=== PATIENT | female | born 2005 | race Caucasian/White ===

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

== ENCOUNTER 2023-02-08 16:09 | Emergency (ER) | payer BC, OTHER, SELFPAY ==
[2023-02-08] VITALS (36 sets, daily range): BP systolic 84–120; BP diastolic 64–93; PULSE 74–104; RESP 16; TEMP 37.4; O2SAT 95–100
--- NOTE | 2023-02-08 16:10 | ED.NURSE ---
pt complained of increasing Left hip and knee pain, pelvis stable, MD notified, verbal order for IV placement for additional CT with contrast. no further orders at this time.
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
[2023-02-08 16:44] LABS: Basophils Percent Auto 0.9 % (0.0-3.0); Eosinophils Percent Auto 1.5 % (0.0-7.0); Hematocrit 40.9 % (33.0-51.0); Hemoglobin* 13.9 gm/dL (12.0-16.0); Immature Granulocytes Pct Auto 0.2 %; Lymphocytes Percent Auto 30.7 % (20-44); Mean Corpuscular HGB Conc 34 gm/dL (32-36); Mean Corpuscular Hemoglobin 31 pg (26-34); Mean Corpuscular Volume 92 fL (80-100); Monocytes Percent Auto 7.4 % (0.0-11.0); Neutrophils Percent Auto 59.3 % (42.0-72.0); Platelet Count* 442 K/uL (140-440); RDW Coefficient of Variation % 12.9 % (11.5-15.5); Red Blood Count 4.43 m/uL (4.00-5.20); White Blood Count* 11.21 K/uL (4.50-11.00)
[2023-02-08 16:47] LABS: Slide Review Reflex No
[2023-02-08 16:56] LABS: Albumin* 4.3 g/dL (3.3-5.0); Chloride* 102 mmol/L (96-114); Sodium* 134 mmol/L (135-149)
[2023-02-08 16:57] LABS: Potassium* 3.5 mmol/L (3.6-5.1)
[2023-02-08 16:58] LABS: HCG Qualitative Serum* Negative (Negative)
[2023-02-08 16:59] LABS: Alanine Aminotransferase* 26 U/L (4-35); Alkaline Phosphatase* 134 U/L (40-150); Anion Gap 13 mEq/L (7-15); Aspartate Amino Transferase* 22 U/L (12-35); Bilirubin Total* 0.6 mg/dL (0.1-1.5); Blood Urea Nitrogen* 15 mg/dL (5-24); Carbon Dioxide* 19 mmol/L (20-32); Creatinine* 0.3 mg/dL (0.6-1.2); Estimated Glomerular Filt Rate 157 ml/min; Glucose* 306 mg/dL (60-115); Total Protein* 7.5 g/dL (6.0-8.3)
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
[2023-02-08 17:38] LABS: Glucose, Point-of-Care* 294 mg/dl (60-115)
--- NOTE | 2023-02-08 17:50 | ED.NURSE ---
insulin given in posterior left upper arm
[2023-02-08 18:02] LABS: Appearance Urine Clear (Clear); Bilirubin Urine Negative (Negative); Blood Urine Negative (Negative); Color Urine Yellow (Yellow); Glucose Urine 2+ (Negative); Ketones Urine 4+ (Negative); Leukocyte Esterase Urine Negative (Negative); Nitrite Urine Negative (Negative); Protein Urine Negative (Negative); Specific Gravity Urine 1.015 (1.000-1.030); Urobilinogen Urine 0.2 (0.2-1.0); pH Urine 5.5 (5.0-8.5)
[2023-02-08 18:11] LABS: Amorphous Sediment Urine Few; RBC Urine 0-2 (0-2); Squamous Epithelial Cell Urine Few (None-Few)
[2023-02-08] MEDS: 0.9 % SODIUM CHLORIDE 1000 ml 1,000 ML IV (18:44)
--- NOTE | 2023-02-08 19:16 | ED.NURSE ---
insulin given in posterior upper left arm, per pt request
== END 2023-02-08 20:40 | disposition home or self-care (01) ==
PROVIDERS: Emergency Provider Family Medicine; PCP Physician Assistant Medical
DX: M25.511 Pain in right shoulder (principal); R73.9 Hyperglycemia, unspecified; V48.5XXA Car driver injured in noncollision transport accident in traffic accident, initial encounter
CPT/HCPCS: 36415; 70450; 71045; 72125; 73000; 73060; 73070; 74177; 80053; 81001; 82947; 82962; 84703; 85025; 87086; 87186; 96360; 96372; 99284; 99285; 99291; J7030; Q9967

== ENCOUNTER 2024-06-13 19:15 | Emergency (ER) | payer OTHER, SELFPAY ==
--- OUTSIDE RECORDS SUMMARY | 2024-06-13 19:18 | XMS_ITS | Continuity of Care Document ---
Author Name [facility] Organization [facility] Care Team Providers Care Call Center Dispatcher Name Role Phone [facility] Unavailable Unavailable Problems Combined list of problems from Department of Defense and Veterans Affairs facilities. It does not include entries that were removed or entered in error. Problem Status Onset Date Problem Type Date of Resolution Comments Source streptococcal sore throat Inactive Condition DoD anomalies of nails Active Condition DoD visit for: well child visit Active Condition DoD immunizations lapsed Active Condition [facility] Outpatient Physician Consultation Active Condition DoD abdominal pain Active Condition DoD allergic rhinitis Active Condition DoD Patient Education Dietary Food Sources For Nutrients Active Condition [facility] Dietary Counseling Pertaining To Specific Condition Active Condition DoD Patient Education - Medication Active Condition DoD Guidance: Concerns About Inadequate Physical Activity Active Condition [facility] Patient Education Dietary Active Condition DoD neck strain Inactive Condition [facility] open wound of face - lip Inactive Condition [facility] visit for: administrative purpose Inactive Condition [facility] nasal passage blockage (stuffiness) Active Condition [facility] cough Active Condition [facility] earache Inactive Condition [facility] diabetes mellitus type 1 - uncontrolled Active Condition [facility] hematuria Active Condition DoD otitis media right ear Active Condition [facility] diabetes mellitus Active Condition [facility] visit for: laboratory Inactive Condition [facility] enuresis primary nocturnal Inactive Condition DoD excessive thirst / fluid intake (polydipsia) Active Condition [facility] New Patient Age 5-11 School / Camp Physical Inactive Condition [facility] otitis externa acute Inactive Condition [facility] pharyngitis streptococcus, group A: beta hemolytic acute Inactive Condition DoD vomiting Inactive Condition DoD viral exanthem Active Condition [facility] pharyngitis acute Active Condition Ra pid strep is negative. DoD Fever Active Condition continue o ral hydration and continue motrin prn. DoD acute tonsillitis Inactive Condition Co ntinue oral hydration.Give soft diet. DoD upper respiratory infection acute Active Condition Mother and father of child both in the room agreed to sympomatic treatment on a PRN basis only. DoD Medications Combined list of outpatient medications from Department of Defense and Veterans Affairs facilities.Medications provided include 1) outpatient medications from the last 15 months, and 2) patient-reported medications. Medication Details Route Status Patient Instructions Prescription Expires Prescription Number Last Dispense Date Ordering Provider Order Date Order Qty Source FREESTLodgeo THAIS 3 SENSOR (flash glucose sensor), KIT, MISCELL, FIELD DIABETES, 1 ea. KIT Active [id number] 2023 6 Pharmac y Data Transac tion Service Facilit y LANTUS SOLOSTAR ([facility] 100/ML (3), INSULN PEN, SUB-Q, SANOFI-AVEN TIS, 3 ml SYRINGE Cancele d [id number] : 2023 0 Pharmac y Data Transac tion Service Facilit y LANTUS SOLOSTAR (INSULIN GLARGINE,[facility].REC.ANLOG ), 100/ML (3), INSULN PEN, SUB-Q, SANOFI-AVEN TIS, 3 ml SYRINGE Active [id number] 2023 30 Pharmac y Data Transac tion Service Facilit y LANTUS SOLOSTAR (INSULIN GLARGINE,[facility].REC.ANLOG ), 100/ML (3), INSULN PEN, SUB-Q, SANOFI-AVEN TIS, 3 ml SYRINGE Active [id number] 4 2023 30 Pharmac y Data Transac tion Service Facilit y METHYLPHENI DATE ER (METHYLPHEN IDATE HCL), 54 MG, TAB ER 24, ORAL, [place], 100 ea. BOTTLE Cancele d [id number] : 2023 0 Pharmac y Data Transac tion Service Facilit y METHYLPHENI DATE ER (METHYLPHEN IDATE HCL), 54 MG, TAB ER 24, ORAL, [place], 100 ea. BOTTLE Active [id number] 2023 30 Pharmac y Data Transac tion Service Facilit y METHYLPHENI DATE ER (METHYLPHEN IDATE HCL), 54 MG, TAB ER 24, ORAL, MALLINCKROD T PH, 100 ea. BOTTLE Cancele d [id number] : 2023 0 Pharmac y Data Transac tion Service Facilit y METHYLPHENI DATE ER (methylphen idate HCl), 54 MG, TAB ER 24, ORAL, [employer], 100 ea. BOTTLE Active [id number] 4 2023 30 Pharmac y Data Transac tion Service Facilit y METHYLPHENI DATE ER (methylphen idate HCl), 54 MG, TAB ER 24, ORAL, [employer], 100 ea. BOTTLE Active [id number] 4 2023 30 Pharmac y Data Transac tion Service Facilit y NOVOLOG (INSULIN ASPART), 100 U/ML, INSULN PEN, SUB-Q, FINESSE NORDISK, 3 ml SYRINGE Active [id number] 2023 30 Pharmac y Data Transac tion Service Facilit y Allergies, Adverse Reactions, Alerts Combined list of allergies from Department of Defense and Veterans Affairs facilities. It does not include entries that were removed or entered in error. Substance Category Reaction Severity Reaction type Status Date Reported Comments Source No Known Allergies Drug allergy (disorder) active 12/07/2007 22 Med G p Jahaira GALVAN ([facility] [place] Immunizations Combined list of available immunizations from the Department of Defense and Veterans Affairs facilities. Immunization Series Date Given Administered By Site Reaction Lot Number CVX Code Drug Slab Stripper Status Comments Source pneumococcal polysaccharid e vaccine, 23 valent 1 2012 Unknown, Provider [id number] Merck (MSD) complet ed pneumococ andres polysacch aride vaccine, 23 valent DoD Influenza, seasonal, injectable 3 2010 Unknown, Provider [id number] Sanofi Pasteur (PMC) complet ed Influenza , seasonal, injectabl e DoD hepatitis A vaccine, pediatric dosage, unspecified formulation 2 2010 Unknown, Provider [id number] PhoenixKline (SKB) complet ed hepatitis A vaccine, pediatric dosage, unspecifi ed formulati on DoD measles, mumps and rubella virus vaccine 2 2008 Unknown, Provider [id number] Merck (MSD) complet ed measles, mumps and rubella virus vaccine DoD varicella virus vaccine 2 2008 Unknown, Provider [id number] 21 Merck (MSD) complet ed varicella virus vaccine DoD hepatitis A vaccine, pediatric dosage, unspecified formulation 1 2008 Unknown, Provider [id number] 31 SmithKline (SKB) complet ed hepatitis A vaccine, pediatric dosage, unspecifi ed formulati on DoD Diphtheria, tetanus toxoids and acellular pertu is vaccine, and poliovirus vaccine, inactivated 5 2008 Unknown, Provider [id number] 130 [place] [employer] ([facility]) complet ed Diphtheri a, tetanus toxoids and acellular pertussis vaccine, and polioviru s vaccine, inactivat ed DoD influenza virus vaccine, split virus (incl. purified surface antigen)-reti red CODE 1 2004 Unknown, Provider [id number] 15 Sanofi Pasteur ([facility]) complet ed influenza virus vaccine, split virus (incl. purified surface antigen)- retired CODE DoD diphtheria, tetanus toxoids and acellular pertu is vaccine 4 2004 Unknown, Provider [id number] 20 [place] [employer] ([facility]) complet ed diphtheri a, tetanus toxoids and acellular pertussis vaccine DoD pneumococcal conjugate vaccine, 7 valent 4 2004 Unknown, Provider [id number] 100 Wy[employer] ([facility]) complet ed pneumococ andres conjugate vaccine, 7 valent DoD measles, mumps and rubella virus vaccine 1 2004 Unknown, Provider [id number] 03 Merck (MSD) complet ed measles, mumps and rubella virus vaccine DoD varicella virus vaccine 1 2004 Unknown, Provider [id number] 21 Merck (MSD) complet ed varicella virus vaccine DoD Haemophilus influenzae type b vaccine, PRP-OMP conjugate 3 2004 Unknown, Provider [id number] 49 Merck (MSD) complet ed Haemophil us influenza e type b vaccine, PRP-OMP conjugate DoD influenza virus vaccine, split virus (incl. purified surface antigen)-reti red CODE 1 2003 Unknown, Provider [id number] 15 Sanofi Pasteur ([facility]) complet ed influenza virus vaccine, split virus (incl. purified surface antigen)- retired CODE DoD pneumococcal conjugate vaccine, 7 valent 3 2003 Unknown, Provider [id number] 100 [employer]-Ayerst ([facility]) complet ed pneumococ andres conjugate vaccine, 7 valent DoD DTaP-hepatiti s B and poliovirus vaccine 3 2003 Unknown, Provider [id number] 110 [employer] (B) complet ed DTaP-hepa titis B and polioviru s vaccine DoD Haemophilus influenzae type b vaccine, PRP-OMP conjugate 2 2003 Unknown, Provider [id number] 49 Merck (MSD) complet ed Haemophil us influenza e type b vaccine, PRP-OMP conjugate DoD pneumococcal conjugate vaccine, 7 valent 2 2003 Unknown, Provider [id number] 100 Wyvandana-Zan ([facility]) complet ed pneumococ andres conjugate vaccine, 7 valent DoD DTaP-hepatiti s B and poliovirus vaccine 2 2003 Unknown, Provider [id number] 110 SmithKline (SKB) complet ed DTaP-hepa titis B and polioviru s vaccine DoD Haemophilus influenzae type b vaccine, PRP-OMP conjugate 1 2003 Unknown, Provider [id number] 49 Merck (MSD) complet ed Haemophil us influenza e type b vaccine, PRP-OMP conjugate DoD pneumococcal conjugate vaccine, 7 valent 1 2003 Unknown, Provider [id number] 100 Wy[employer]Ayer[employer] ([facility]AL) complet ed pneumococ andres conjugate vaccine, 7 valent DoD DTaP-hepatiti s B and poliovirus vaccine 1 2003 Unknown, Provider [id number] 110 [employer] [facility] complet ed DTaP-hepa titis B and polioviru s vaccine DoD hepatitis B vaccine, pediatric or pediatric/ado lescent dosage 1 2003 Unknown, Provider Transcr ibed 08 Other (OTH) complet ed hepatitis B vaccine, pediatric or pediatric /adolesce nt dosage DoD Encounters Combined list of: 1) Encounters from Department of Veterans Affairs facilities going backup to the last 18 months, not all VA inpatient encounters are included; 2) Encounters from the Department of Defense facilities going backup to 280 months. Location Location Details Encounter Type Encounter Number Reason For Visit Attending Provider ADM Date DC Date Status Disposition Source [employer](F amily Practice Team 2) OUTPATIENT [id number] Red throat and fever DEANA TALLEY 09/16 Released w/o Limitations [employer] (Family Practic e Team 2) [employer](P ediatrics Clinic) OUTPATIENT [id number] FEVER AND CONGEST ESTELA LING S 09/19 Released w/o Limitations [employer] (Pediat rics Clinic) [employer] [employer]P ediatrics Clinic) OUTPATIENT [id number] sore throat ESTELA GUZMÁN S 04/06 Released w/o Limitations [employer] [employer] [place]Pediat [place]ics Clinic) [employer] [employer]F amily Practice Team 1) TELE CONSULT [id number] referDEANA Vasquez 12/06 [employer] [employer] (Family Practic e Team 1) [employer] [employer] am[place] Practice Team 2) OUTPATIENT [id number] THROAT CULTURE LAURA NAVA 07/21 Released w/o Limitations [employer] [employer] (Family Practic e Team 2) [employer] [employer] am[place] Practice Team 2) OUTPATIENT [id number] Earache , cough JODY STEPHENUGO 09/15 Released w/o Limitations [employer] [employer] (Family Practic e Team 2) [employer] [employer]F am[place] Practice Team 2) OUTPATIENT [id number] LAURA NAZARIO 11/22 Released w/o Limitations [employer] [employer] (Family Practic e Team 2) [employer] [employer]F amily Practice Team 2) TELE CONSULT [id number] rajesh BIANCHIAXIN 11/22 [employer] [employer] (Family Practic e Team 2) [employer] [employer]F amily Practice Team 2) TELE CONSULT [id number] LAURA Choe 11/27 [employer] [employer] (Family Practic e Team 2) [employer] [employer]F amily Practice Team 2) OUTPATIENT [id number] LAURA NAVA 04/02 Released w/o Limitations [employer] [employer] (Family Practic e Team 2) [employer] [employer]F amily Practice Team 2) OUTPATIENT [id number] vomitin g and fever, pt is diabeti c LIBBY FIELD 06/05 Released w/o Limitations [employer] [employer] (Family Practic e Team 2) [employer] [employer]F amily Practice Team 2) TELE CONSULT [id number] Overdue DM Labs LUBNA BENSON 06/27 [employer] [employer] (Family Practic e Team 2) [employer] [employer]F amily Practice Team 2) TELE CONSULT [id number] fyi LIBBY FIELD 10/[employer] [employer] [employer] (Family Practic e Team 2) [employer] [employer]F am[place] Practice Team 2) OUTPATIENT [id number] DM f/u ER visit LIBBY FIELD 10/10 Released w/o Limitations [employer] [employer] (Family Practic e Team 2) [employer] [employer]F amily Practice Team 2) TELE CONSULT [id number] Report lab LIBBY FIELD 10/17 [employer] [employer] (Family Practic e Team 2) [employer] [employer]F amily Practice Team 1) TELE CONSULT [id number] LUBNA Fajardo 01/30 [employer] [employer] (Family Practic e Team 1) [employer] [employer]F amily Practice Team 1) TELE CONSULT [id number] Referra LIBBY Caro 11/22 /2010 [employer] [employer] (Family Practic e Team 1) [employer] [employer]F amily Practice Team 2) TELE CONSULT [id number] pt needs new referra l for Endocro nologis t DORI GOLD 04/[employer] [employer] (Family Practic e Team 2) [employer] [employer]F amily Practice Team 2) OUTPATIENT [id number] Cough and Congest ion BENSON, LUBNA K 05/20 Released w/o Limitations [employer] [employer] (Family Practic e Team 2) [employer] [employer]F amily Practice Team 1) TELE CONSULT [id number] Network results - Endocri nology - 0411 DORI GOLD 08/[employer] [employer] (Family Practic e Team 1) [employer] [employer]F amily Practice Team 2) OUTPATIENT [id number] referra l for endocro nolgist LIBBY FIELD 11/27 Released w/o Limitations [employer] [employer] (Family Practic e Team 2) [employer] [employer](Sergei Barber Ped Team A) OUTPATIENT [id number] neck pain SORAYA LOW 02/20 Released w/o Limitations [employer] [employer] (Jan bills Ped Team A) [employer] [employer](Jodie ietician (In-House )) OUTPATIENT [id number] Diabete s Class JACKIE MCLAUGHLIN 05/13 Released w/o Limitations [employer] [employer] (Danisha amnzano (In-Rohith)) [employer] [employer](M [facility] Team Z) OUTPATIENT [id number] DM Group class TANIKA EVERETT RN 05/13 Released w/o Limitations [employer] [employer] ([facility] Team Z) [employer] [employer]([facility] Team Z) TELE CONSULT [id number] DM b-day labs TANIKA EVERETT RN 06/13 [employer] [employer] ([facility] Team Z) [employer] [employer](M [facility] Ped Team A) OUTPATIENT [id number] cough and vomitin g SORAYA LOW 08/03 Released w/o Limitations [employer] [employer] ([facility] Ped Team A) [employer] [employer]([facility] Ped Team A) OUTPATIENT [id number] stomach pains SORAYA LOW 10/12 Released w/o Limitations [employer] [employer] ([facility] Ped Team A) [employer] [employer]([facility] Ped Team A) OUTPATIENT [id number] cough SORAYA LOW 12/25 Released w/o Limitations [employer] [employer] ([facility] Ped Team A) [employer] [employer]([facility] Ped Team A) TELE CONSULT [id number] Notes Entered by: LAUREL ESTRADA 19 May 2012 1450 ------- ------- ------- ------- -- Network Results - Endo. - 04/2012 SORAYA LOW 05/19 [employer] [employer] ([facility] Ped Team A) [employer] [employer]([facility] Ped Team A) TELE CONSULT [id number] Notes Entered by: LAUREL ESTRADA 24 Jun 2012 1331 ------- ------- ------- ------- -- Network Results - Endo. - 06/2012 SORAYA LOW 06/24 [employer] [employer] ([facility] Ped Team A) [employer] [address] [facility] [employer]([facility] Team A) TELE CONSULT [id number] Notes Entered by: LAUREL ESTRADA 24 Jun 2012 1332 ------- ------- ------- ------- -- Network Results - Endo. - 06/2012 SORAYA LOW 06/24 [employer] [employer] ([facility] Team A) [employer] [place] [facility] [place] [employer]([facility] Team A) TELE CONSULT [id number] Notes Entered by: LAUREL ESTRADA 09 Jul 2012 1506 ------- ------- ------- ------- -- Network Results - Endo. - 06/2012 SORAYA LOW 07/09 [employer] [employer] ([facility] Team A) [employer] [place] [facility] [employer]([facility] Team A) TELE CONSULT [id number] Notes Entered by: LAUREL ESTRADA 14 Jul 2012 1545 ------- ------- ------- ------- -- Network Results - Endo. - 06/2012 SORAYA LOW 07/14 [employer] [place] [employer] ([facility] Team A) [facility] [employer]([facility] Team Z) TELE CONSULT [id number] Notes Entered by: TANIKA EVERETT RN 16 Jul 2012 1021 ------- ------- ------- ------- -- Lab from [place] base TANIKA Mendez RN 07/16 [employer] [employer] ([facility] Team Z) [employer] [place] [employer]([facility] Team A) TELE CONSULT [id number] Notes Entered by: LAUREL ESTRADA 06 Aug 2012 0739 ------- ------- ------- ------- -- Network Results - Endo. - 07/2012 SORAYA LOW 08/[employer] [employer] ([facility] Team A) [employer] [place] [employer]([facility] Ped Team A) TELE CONSULT [id number] Notes Entered by: LAUREL ESTRADA 06 Aug 2012 0740 ------- ------- ------- ------- -- Network Results - Endo - 07/2012 SORAYA LOW 08/06 [employer] [place] ([facility] Team A) [employer] [place] [employer]([facility] Team Z) TELE CONSULT [id number] Notes Entered by: TANIKA EVERETT RN 06 Aug 2012 1138 ------- ------- ------- ------- -- Labs from [place] base TANIKA Mendez RN 08/06[employer], [place] [employer] ([facility] Team Z) [employer] [employer]([facility] Team A) TELE CONSULT [id number] Notes Entered by: ANNA LINDSEY RN 08 Sep 2012 1020 ------- ------- ------- ------- -- Immuniz ation JENN Anaya RN 09/[employer] [employer] [employer] ([facility] Ped Team A) [employer] [employer](M [facility] Ped Team A) OUTPATIENT [id number] well check SORAYA LOW 09/27 Released w/o Limitations [employer] [employer] ([facility] Ped Team A) [employer] [employer](M [facility] Ped Team A) OUTPATIENT [id number] cough SORAYA LOW 10/07 Released w/o Limitations [employer] [employer] ([facility] Ped Team A) [employer] [employer](M [facility] Ped Team A) TELE CONSULT [id number] Notes Entered by: LAUREL ESTRADA 30 Dec 2012 1335 ------- ------- ------- ------- -- Network Results - Endocri nology - 12/2012 SORAYA LOW 12/30 [employer] [employer] ([facility] Ped Team A) [employer] [place] [employer] Ped Team A) OUTPATIENT [id number] diabeti c, toenail turning yellow and peeling SORAYA LOW 02/21 Released w/o Limitations [employer] [employer] ([facility] Ped Team A) [employer] [place] [employer]([facility] Ped Team A) TELE CONSULT [id number] Notes Entered by: LAUREL ESTRADA 15 Mar 2013 1323 ------- ------- ------- ------- -- Network Results - Podiatr y - 02/2013 SORAYA LOW 03/[employer] [employer] ([facility] Team A) [employer] [employer]([facility] Team Z) TELE CONSULT [id number] Notes Entered by: TANIKA EVERETT RN 16 Mar 2013 1217 ------- ------- ------- ------- -- Endo lab results SORAYA LOW 03/16 [employer] [employer] ([facility] Team Z) [employer] [employer]([facility] Team Z) TELE CONSULT [id number] Notes Entered by: DANE DOUGLAS 31 Mar 2013 0953 ------- ------- ------- ------- -- Network results - Endocri nology - 3 SORAYA LOW 03/31 [employer] [employer] ([facility] Team Z) [employer] [place] [employer] Team A) TELE CONSULT [id number] Notes Entered by: LAUREL ESTRADA 12 Apr 2013 1348 ------- ------- ------- ------- -- Network Results - Podiatr y - 03/2013 SORAYA LOW 04/12 [employer] [employer] ([facility] Team A) [employer] [place] [employer] Team A) OUTPATIENT [id number] headach e, stomach pain, sore throat SORAYA LOW 06/02 Released w/o Limitations [employer] [employer] ([facility] Team A) [employer] [employer]([facility] Team D) TELE CONSULT [id number] Notes Entered by: LAUREL ESTRADA 13 Jun 2013 1029 ------- ------- ------- ------- -- Network Results - Podiatr y - 05/2013 SORAYA LOW 06/13 [employer] [employer] ([facility] Team D) [facility] [employer] [employer] [employer]([facility] Team A) TELE CONSULT [id number] Notes Entered by: LAUREL ESTRADA 06 Jul 2013 0746 ------- ------- ------- ------- -- Network Results - Endocri nology - 06/2013 . [facility] SORAYA LOW 07/06 [employer] [employer] ([facility] Team A) [facility] [place] [employer]([facility] Team A) TELE CONSULT [id number] Notes Entered by: Thelma LOZA 02 Aug 2013 1005 ------- ------- ------- ------- -- Please renew Endo ref to Dr. Mick Maravilla . [facility] [phone]..JENN Funes RN 08/02 [facility] [place] [employer] ([facility] Team A) nd [employer] [employer]([facility] Team A) TELE CONSULT [id number] Notes Entered by: Abhishek SALEH 17 Oct 2013 1112 ------- ------- ------- ------- -- Patient is moving this weekend and she needs insulin pump JENN Galloway RN 10/17nd [facility] [employer] [place] [employer] ([facility] Team A) nd [facility] [place] [place] [employer]([facility] Team A) TELE CONSULT [id number] Notes Entered by: IVAN DOUGLASARE WALTER 28 Oct 2013 1251 ------- ------- ------- ------- -- Network results - Endocri nology - SORAYA LOW 10/28 22 [employer] [employer] ([facility] Team A) Procedures Combined list of: 1) Procedures from Department of Veterans Affairs facilities going back up to thelast 18 months, not all [place] non-surgical procedures are included; 2) All procedures from the Department of Defense facilities. Procedure Procedure Type Code Date Perfomer Comments [facility] ramu Disease management program, follow-up/barrington e ment 03/16/2013 IVETT EVERETT RN [facility] Toenail Culture Fungi Toenail Culture Fungi [id number] 02/26/2013 SORAYA LOW [facility] Medical Nutrition Therapy Group (2 or More Individuals) Each 30 Minutes Medical Nutrition Therapy Group (2 or More Individuals) Each 30 Minutes [id number] 05/13/2011 JACKIE MCLAUGHLIN [facility] Disease management program, follow-up/barrington e ment 05/13/2011 IVETT EVERETT RN [facility] DISEASE MANAGEMENT PROGRAM, FOLLOW-UP/REASSESSMEN T 03/16/2013 [facility] CULTURE, FUNGI (MOLD OR YEAST) ISOLATION, WITH PRESUMPTIVE IDENTIFICATION OF ISOLATES; SKIN, HAIR, OR NAIL 02/21/2013 [facility] DISEASE MANAGEMENT PROGRAM, FOLLOW-UP/REASSESSMEN T 05/13/2011 [facility] MEDICAL NUTRITION THERAPY; GROUP (2 OR MORE INDIVIDUAL(S)), EACH 30 MINUTES 05/13/2011 [facility] NONINVASIVE EAR OR PULSE OXIMETRY FOR OXYGEN SATURATION; SINGLE DETERMINATION 03/05/2005 [facility] NONINVASIVE EAR OR PULSE OXIMETRY FOR OXYGEN SATURATION; SINGLE DETERMINATION 08/15/2004 [facility] VARICELLA VIRUS VACCINE (SHERRY), LIVE, FOR SUBCUTANEOUS USE 07/25/2004 [facility] REMOVAL IMPACTED CERUMEN REQUIRING INSTRUMENTATION, UNILATERAL 05/02/2004 [facility] HAEMOPHILUS INFLUENZAE TYPE B VACCINE (HIB), PRP-OMP CONJUGATE, 3 DOSE SCHEDULE, FOR INTRAMUSCULAR USE 2003 [facility] Social History Combined list of available smoking, tobacco, and other social history from Department of Defense and Veterans Affairs facilities. Social History Type Response Date Comment [facility] ramu This section is an empty social history section. [facility]
--- OUTSIDE RECORDS SUMMARY | 2024-06-13 19:18 | XMS_ITS | Clinical Summary ---
Demographics Address [address] [place] [address] Home Phone Mobile Phone Email Address Preferred Language Gabonese Marital Status Unknown Christian Affiliation Does not wish to l ist Race White Ethnic Group Not or Lati no Author Organization [employer] [facility] Address [address] [place] [address] Care Team Providers Care Hair Assistant Name Role Phone Aracelis Saab Primary Care Provider Jo Kearns RN Unavailable Luis Mendiola DO Unavailable [phone] Alannah Boss Unavailable Allergies Active Allergy Reactions Criticality Noted Date Comments Cinnamon Oil Rash Medium 12/28/2013 Cefadroxil Nausea Only,Stomach Upset 01/21/2021 Medications hydrOXYzine HCL (ATARAX) 25 mg tabletIndications :Anxiety Take 0.5-1 tablets by mouth 3 times daily if needed for Anxiety. 25 tablet 05/15/19 21 Active methylphenidate HCl (Concerta) 54 mg Extended-Release tabletIndications :Attention deficit hyperactivity disorder (ADHD), combined type Take 1 Tablet (54 mg) by mouth once daily. 30 Tablet 07/09/19 23 Active methylphenidate HCl (Concerta) 54 mg Extended-Release tabletIndications :Attention deficit hyperactivity disorder (ADHD), combined type Take 1 Tablet (54 mg) by mouth once daily. 30 Tablet 09/08/19 23 Active methylphenidate (Concerta) 54 mg extended-release tabletIndications :Attention deficit hyperactivity disorder (ADHD), combined type Take 1 Tablet (54 mg) by mouth once daily. 30 Tablet 09/19/19 24 Active Blood-Glucose Meter (Contour Next Meter)Indications :Type 1 diabetes mellitus without complication (HC) Test 4 times per day. 11/09/19 24 Active Dexcom G7 Sensor for continuous blood glucose monitor (CGM)Indications: Type 1 diabetes mellitus without complication (HC) To be used to read blood sugars, follow label cutter directions. Change every 10 days 9 Each 3 11/09/19 24 Active methylphenidate (Concerta) 54 mg extended-release tabletIndications :Attention deficit hyperactivity disorder (ADHD), combined type Take 1 Tablet (54 mg) by mouth once daily. 30 Tablet 01/15/20 24 Active methylphenidate (Concerta) 36 mg extended-release tabletIndications :Attention deficit hyperactivity disorder (ADHD), combined type Take 1 Tablet (36 mg) by mouth once daily. 30 Tablet 11/24/19 24 Active pen needle (Cynthia Pen Needle) 32 gauge x 5/32 (disposable insulin pen needle)Indication s:Type 1 diabetes mellitus without complication (HC) Inject subcutaneous 5 times daily. To use with insulin up to 5 times daily 150 Each 3 12/15/19 24 Active insulin aspart, U-100, (NOVOLOG FLEXPEN) 100 unit/mL (3 mL) penIndications:Ty pe 1 diabetes mellitus without complication (HC) 1 unit per 15 grams of carbohydrate plus correction scale of 1:50 over 150. Up to 30 units daily 30 mL 3 12/15/19 24 Active bolus insulin pump, 200 unit (CeQur Simplicity) 2 unit deviIndications:T ype 1 diabetes mellitus without complication (HC) As directed. Patient to change patch every 3 days 1 Each 3 01/14/20 24 Active Lantus Solostar U-100 Insulin 100 unit/mL (3 mL) penIndications:Ty pe 1 diabetes mellitus without complication (HC) Inject 30 units subcutaneous before bedtime. Product desired: LANTUS SOLOSTAR 30 mL 3 02/02/20 24 Active glucagon (Baqsimi) 3 mg/actuation nasal sprayIndications: patient with diabetes mellitus at risk of hypoglycemia Inhale 1 [place] into affected nostril(s) each time if needed for Severe Hypoglycemia. Roll on side and call 911 after administration. 2 Each 03/31/20 24 Active Active Problems Problem Noted Date Diagnosed Date Type 1 diabetes mellitus without complication Resolved Problems Problem Noted Date Diagnosed Date Resolved Date Type 1 diabetes mellitus with hyperglycemia 03/01/2021 08/04/2023 Encounters Date Type Department Care Team Description 04/30/2024 Telephone [facility] [address] [facility] [address] [place] [address] Alannah Boss PA Prior Authorization (Dexcom G7 Sensor for continuous blood glucose monitor (CGM) Approved 04/30/2024 to 04/29/2025) 04/26/2024 Orders Only [facility] [address] [facility] [address] [place] [address] Alannah Boss PA <No scans attached> 03/31/2024 1:00 PM [facility]OTH [facility]ER Patient Outreach [facility] [address] [place] [address] Jo Kearns agent contract clerk (Pre-pump assessment) 03/31/2024 Travel from Last 3 Months Immunizations Name Administration Dates Next Due DTP 11/22/2008, 5,02/07/2004,11/21,2003 DTaP 12/02/2004 [id number] (Pediarix) 02/07/2004,2003,0 2003 DTaP-IPV (Kinrix) 11/22/2008 HIB PRP-OMP (PedvaxHIB) 07/25/2004,2003, HPV 9 (Gardasil 9) 02/04/2016,12/17/2015 Hepatitis A (Peds),Unspecified 11/27/2010,2008,2003 Hepatitis A, Unspecified 11/22/2008,2003 Hepatitis B (Peds) 2003 Hepatitis B, Unspecified 2003,2003,0 2003 Influenza Virus, Unspecified 02/04/2016, 03/28/2015,05/10/2014,02/09(Deferred: Patient Refused),01/30/2011,03/28/2005, 004 Influenza, IIV4 02/21/2020, 9,02/04/2016,03/28,05/10/2014 MENINGOCOCCAL VACCINE 2 VIAL [id number] (MENVEO) 12/07/2020,12/17/2015 MMR 11/22/2008,07/25/2004 Oral Polio Vaccine 11/22/2008, 4,2003,09/18 Pneumococcal Poly,23-Valent (Pneumovax) 09/27/2012 Pneumococcal conj 7-Valent (Prevnar 7) 0 12/02/2004,02/07/2004,2003,09/18 Polio Virus, Unspecified 11/22/2008,01/19,2003,09/18 Tdap 12/17/2015 Varicella Vaccine 11/22/2008,07/25/2004 Family History Medical History Relation Name Comments Other Brother substance abuse Good Health Father Good Health Mother Good Health Sister Relation Name Status Comments Brother Father Mother Sister Social History Tobacco Use Types Packs/Day Years Used Date Smoking Tobacco: Never Smokeless Tobacco: Never Tobacco Cessation:Counseling Given: Yes Comments:no exposure Alcohol Use Standard Drinks/Week Comments Yes 0 (1 standard drink = 0.6 oz pur e alcohol) PHQ-2 Answer Date Recorded PHQ-2 TOTAL SCORE 1 05/15/2020 Social Connections Answer Date Recorded Do you often feel lonely or isolated from those around you? 0 01/19/2024 Alcohol Use Answer Date Recorded How often do you have a drink containing alcohol ? 3 01/08/2022 How many drinks containing a lcohol do you have on a typical day when you are drinking? 2 01/08/2022 How often do you have five or more drinks on one occasion? 3 01/08/2022 Financial Resource Strain Answer Date R ecorded Difficulty of Paying Living Expenses 3 01/19/2024 Difficulty of Paying Living Expenses Not on file 01/19/2024 Food Insecurity Answer Date Recorded Do you worry your food will run out before you are able to buy more? 1 01/19/2024 Transportation Needs Answer Date Record ed Does lack of transportation keep you from medica l appointments? 1 01/19/2024 Does lack of transportation keep you from work, meetings or getting things that you need? 1 01/19/2024 Housing Stability Answer Date Recorded What is your housing situation today? 1 01/19/2024 Utilities Answer Date Recorded Do you have trouble paying f or utilities (for example, heat, electricity, water, phone)? 1 01/19/2024 Comments No Sex and Gender Information Value Date Recorded Sex Assigned at Not on file Legal Sex Female 1:44 PM CDT Gender Identity Not on file Sexual Orientation Not on file Obstetrics History Last Filed Vital Signs Vital Sign Reading Time Taken Comments Blood Pressure 112/68 02/01/2024 11:27 AM CDT Pulse 68 02/01/2024 11:27 AM CDT Temperature 36.7 C (98.1 F) 02/10/2023 3:03 PM CDT Respiratory Rate 20 05/20/2017 1:46 PM CLOTH SHRINKER Oxygen Saturation 97% 01/19/2024 2:44 PM CDT Inhaled Oxygen Concentration - - Weight 48.5 kg (107 lb) 02/01/2024 11:27 AM CDT Height 157 cm (5' 1.81) 12/09/2023 4:13 PM CDT Body Mass Index - - Plan of Treatment Upcoming Encounters Date Type Department Care Team (Late st Contact Info) Description 08/02/2024 9:40 AM CDT Office Visit [facility] [address] [place], [place] [id number] Luis Mendiola, DO [address] [place] [address] Health Maintenance Due Date Last Done Comments Pneumococcal series for age 6-49 (2 of 2 - PCV) 09/27/2013 09/27/2012, 12/02/2004, 02/07/2004, Additional history exists HPV series for age 9-26 (3 - 2-dose series) 06/17/2016 02/04/2016, 12/17/2015 Well Child Check for age 3-20 12/16/2016 12/17/2015 HIV for age 15-65 07/18/2018 Depression screening for age 12+ 05/15/2021 05/15/2020, 04/06/2019, 05/29/2017, Additional history exists Hepatitis C screening for ag e 18-79 07/18/2021 Chlamydia for age 16-24 11/26/2022 11/26/2021 COVID-19 vaccine series ( season) 2023 08/07/2020, 07/17/2020 Influenza for age 9-49 12/20/2023 , 01/25/2019, 02/04/2016, Additional history exists BMI (ht and wt on same day) for age 18+ 12/08/2024 12/09/2023, 11/09/2023, 12/27/2021, Additional history exists Tetanus booster 12/16/2025 12/17/2015 Hepatitis B series for Diabetes Completed 02/07/2004, 2003, 2003, Additional history exists Tdap Completed 12/17/2015 Meningococcal series for age 11-21 Completed 2020, 12/17/2015 Procedures Procedure Name Priority Date/Time Associated Diagnosis Comments GC CHLAMYDIA TRACH PROBE Routine 11/26/2021 1:09 PM CDT Screen for STD (sexually transmitted disease) Vaginal discharge from Last 3 Months or Most Recently Relevant to Health Maintenance Results * (ABNORMAL) GC CHLAMYDIA TRACH PROBE (11/26/2021 1:09 PM CDT) CHLAMYDIA PROBE Positive(A) 11/28/19 2:12 PM CDT [facility] N GONORRHOEAE PROBE Negative 11/27/2021 2:12 PM CDT [facility] Other VAGINAL SWAB / Unknown Non-Blood / Unknown 11/26/2021 1:09 PM CDT 11/26/2021 1:43 PM CDT us Aracelis PINEDA MICROBIOLOGY Final R esult [facility] [address] [place] [address], [place] from Last 3 Months or Most Recently Relevant to Health Maintenance Insurance [facility] * Guarantor: Antoni Pacheco Account Type Relation to Patient Date of Phone Billing Address Workers Comp Self 2005 04[address] [place] [address] [employer] NON-XCEL EMP Care Teams Hair Assistant Relationship Specialty Start Date End Date Aracelis Saab PA [address] [place] [address] PCP - General Physician Japanese Interpreter 07/11/20 Jo Kearns, RN [address] [place] [address] Body Maker 12/16/22 Luis Mendiola DO [address] [place] [address] Endocrinology 05/01/23 Alannah Boss PA [address] [place] [address] Endocrinology Physician Japanese Interpreter 11/09/23
[2024-06-13 19:32] VITALS: BP 131/92; PULSE 106; RESP 20; TEMP 37.8; O2SAT 96; BMI 18.7
[2024-06-13 20:36] LABS: PCR FLU A Negative PCR FLU A (Negative); PCR FLU B Negative PCR FLU B (Negative); PCR RSV POSITIVE PCR RSV (Negative); SARS PCR* Negative SARS-CoV-2 (Negative)
[2024-06-13 21:06] VITALS: BP 124/84; PULSE 109; RESP 16; TEMP 37.7; O2SAT 95
--- OUTSIDE RECORDS SUMMARY | 2024-06-13 21:20 | XMS_ITS | Continuity of Care Document ---
Author Name [facility] Organization [facility] Care Team Providers Care Convertible Sofa Bedspring Tester Name Role Phone [facility] Unavailable Unavailable Problems Combined list of problems from Department of Defense and Veterans Affairs facilities. It does not include entries that were removed or entered in error. Problem Status Onset Date Problem Type Date of Resolution Comments Source streptococcal sore throat Inactive Condition DoD anomalies of nails Active Condition DoD visit for: well child visit Active Condition DoD immunizations lapsed Active Condition [facility] Outpatient Physician Consultation Active Condition DoD abdominal pain Active Condition DoD allergic rhinitis Active Condition DoD Patient Education Dietary Food Sources For Nutrients Active Condition [facility] Dietary Counseling Pertaining To Specific Condition Active Condition DoD Patient Education - Medication Active Condition DoD Guidance: Concerns About Inadequate Physical Activity Active Condition [facility] Patient Education Dietary Active Condition DoD neck strain Inactive Condition [facility] open wound of face - lip Inactive Condition [facility] visit for: administrative purpose Inactive Condition [facility] nasal passage blockage (stuffiness) Active Condition [facility] cough Active Condition [facility] earache Inactive Condition [facility] diabetes mellitus type 1 - uncontrolled Active Condition [facility] hematuria Active Condition DoD otitis media right ear Active Condition [facility] diabetes mellitus Active Condition [facility] visit for: laboratory Inactive Condition [facility] enuresis primary nocturnal Inactive Condition DoD excessive thirst / fluid intake (polydipsia) Active Condition [facility] New Patient Age 5-11 School / Camp Physical Inactive Condition [facility] otitis externa acute Inactive Condition [facility] pharyngitis streptococcus, group A: beta hemolytic acute Inactive Condition DoD vomiting Inactive Condition DoD viral exanthem Active Condition [facility] pharyngitis acute Active Condition Ra pid strep [...] Ordering Provider Order Date Order Qty Source FREESTTravelZeeky THAIS 3 SENSOR (flash glucose sensor), KIT, MISCELL, FIELD DIABETES, 1 ea. KIT Active [id number] 2023 6 Pharmac y Data Transac tion Service Facilit y LANTUS SOLOSTAR (INSULIN GLARGINE,[facility] ), 100/ML (3), INSULN PEN, SUB-Q, SANOFI-AVEN TIS, 3 ml SYRINGE Cancele d [id number] : 2023 0 Pharmac y Data Transac tion Service Facilit y LANTUS SOLOSTAR (INSULIN GLARGINE,[facility].REC.ANLOG ), 100/ML (3), INSULN PEN, SUB-Q, SANOFI-AVEN TIS, 3 ml SYRINGE Active [id number] 2023 30 Pharmac y Data Transac tion Service Facilit y LANTUS SOLOSTAR (INSULIN GLARGINE,[facility].REC.ANLOG ), 100/ML (3), INSULN PEN, SUB-Q, SANOFI-AVEN TIS, 3 ml SYRINGE Active [id number] 2023 30 Pharmac y Data Transac tion Service Facilit y METHYLPHENI DATE ER (METHYLPHEN IDATE HCL), 54 MG, TAB ER 24, ORAL, [place] URB[place], 100 ea. BOTTLE Cancele d [id number] : 2023 0 Pharmac y Data Transac tion Service Facilit y METHYLPHENI DATE ER (METHYLPHEN IDATE HCL), 54 MG, TAB ER 24, ORAL, [place], 100 ea. BOTTLE Active [id number] 2023 30 Pharmac y Data Transac tion Service Facilit y METHYLPHENI DATE ER (METHYLPHEN IDATE HCL), 54 MG, TAB ER 24, ORAL, MALLINCKROD T PH, 100 ea. BOTTLE Cancele d [id number] : 2023 0 Pharmac y Data Transac tion Service Facilit y METHYLPHENI DATE ER (methylphen idate HCl), 54 MG, TAB ER 24, ORAL, TRIGEN [employer]ORATO, 100 ea. BOTTLE Active [id number] 2023 30 Pharmac y Data Transac tion Service Facilit y METHYLPHENI DATE ER (methylphen idate HCl), 54 MG, TAB ER 24, ORAL, TRIGEN [employer]ORATO, 100 ea. BOTTLE Active [id number] 2023 30 Pharmac y Data Transac tion Service Facilit y NOVOLOG (INSULIN ASPART), 100 U/ML, INSULN PEN, SUB-Q, FINESSE NORDISK, 3 ml SYRINGE Active [id number] 2023 30 Pharmac y Data Transac [...] 12/07/2007 22 Med G p Jahaira GALVAN ([facility]) Immunizations Combined list of available immunizations from the Department of Defense and Veterans Affairs facilities. Immunization Series Date Given Administered By Site Reaction Lot Number CVX Code Drug Government Affairs Manager Status Comments Source pneumococcal polysaccharid e vaccine, 23 valent 1 2012 Unknown, Provider [id number] Merck (MSD) complet ed pneumococ andres polysacch aride vaccine, 23 valent DoD Influenza, seasonal, injectable 3 2010 Unknown, Provider [id number] Sanofi Pasteur (PMC) complet ed Influenza , seasonal, injectabl e DoD hepatitis A vaccine, pediatric dosage, unspecified formulation 2 2010 Unknown, Provider [id number] 31 ExiraKline (SKB) complet ed hepatitis A vaccine, pediatric [...] poliovirus vaccine, inactivated 5 2008 Unknown, Provider [id number] 130 [place] ([facility]) complet ed Diphtheri a, tetanus toxoids and acellular pertussis vaccine, and polioviru s vaccine, inactivat ed DoD influenza virus vaccine, split virus (incl. purified surface antigen)-reti red CODE 1 2004 Unknown, Provider [id number] Sanofi Pasteur ([facility]) complet ed influenza virus vaccine, split virus (incl. purified surface antigen)- retired CODE DoD diphtheria, tetanus toxoids and acellular pertu is vaccine 4 2004 Unknown, Provider [id number] 20 [place] ([facility]) complet ed diphtheri a, tetanus toxoids and acellular pertussis vaccine DoD pneumococcal conjugate vaccine, 7 valent 4 2004 Unknown, Provider [id number] 100 Wyeth-Ayerst ([facility]) complet ed pneumococ andres conjugate vaccine, 7 [...] antigen)-reti red CODE 1 2003 Unknown, Provider [id number] Sanofi Pasteur ([facility]) complet ed influenza virus vaccine, split virus (incl. purified surface antigen)- retired CODE DoD pneumococcal conjugate vaccine, 7 valent 3 2003 Unknown, Provider [id number] 100 Wyeth-Ayerst ([facility]) complet ed pneumococ andres conjugate vaccine, 7 valent DoD DTaP-hepatiti s B and poliovirus vaccine 3 2003 Unknown, Provider [id number] 110 WikiBrainsKline (B) complet ed DTaP-hepa titis B and polioviru s vaccine DoD Haemophilus influenzae type b vaccine, PRP-OMP conjugate 2 2003 Unknown, Provider [id number] Merck (MSD) complet ed Haemophil us influenza e type b vaccine, PRP-OMP conjugate DoD pneumococcal conjugate vaccine, 7 valent 2 2003 Unknown, Provider [id number] 100 Wyvandana-Zan (WAL) complet ed pneumococ andres conjugate vaccine, 7 valent DoD DTaP-hepatiti s B and poliovirus vaccine 2 2003 Unknown, Provider [id number] 110 SmithKline (SKB) complet ed DTaP-hepa titis [...] and poliovirus vaccine 1 2003 Unknown, Provider [id number] 110 [facility] ([facility]) complet ed DTaP-hepa titis B [...] [employer](F amily Practice Team 2) OUTPATIENT [id number] Red throat and fever DEANA TALLEY 09/16 Released w/o Limitations [employer] [place] [employer] (Family Practic e Team 2) [employer] [place] [employer](P ediatrics Clinic) OUTPATIENT [id number] FEVER AND CONGEST ESTELA LING S 09/19 Released w/o Limitations [employer] [place] [employer] (Pediat rics Clinic) [employer] [employer](P ediatrics Clinic) OUTPATIENT [id number] sore throat ESTELA GUZMÁN S 04/06 Released w/o Limitations [employer] [employer] [place] [employer] (Pediat rics Clinic) [employer] [employer](F amily Practice Team 1) TELE CONSULT [id number] referDEANA Vasquez 12/06 [employer] [employer] (Family Practic e Team 1) [employer] [employer](F amily Practice Team 2) OUTPATIENT [id number] THROAT CULTURE LAURA NAVA 07/21 Released w/o Limitations [employer] [employer] (Family Practic e Team 2) [employer] [employer](F amily Practice Team 2) OUTPATIENT [id number] Earache , cough JODY STEPHENUGO 09/15 Released w/o Limitations [employer] [employer] (Family Practic e Team 2) [employer] [employer](F amily Practice Team 2) OUTPATIENT [id number] LAURA NAZARIO 11/22 Released w/o Limitations [employer] [employer] (Family Practic e Team 2) [employer] [employer](F amily Practice Team 2) TELE CONSULT [id number] rajesh BIANCHIAXIN 11/22 [employer] [employer] (Family Practic e Team 2) [employer] [employer](F amily Practice Team 2) TELE CONSULT [id number] LAURA Choe 11/27 [employer] [employer] (Family Practic e Team 2) [employer] [employer](F amily Practice Team 2) OUTPATIENT [id number] LAURA NAVA 04/02 Released w/o Limitations [employer] [employer] (Family Practic e Team 2) [employer] [employer](F amily Practice Team 2) OUTPATIENT [id number] vomitin g and fever, pt is diabeti c LIBBY FIELD 06/05 Released w/o Limitations [employer] [employer] (Family Practic e Team 2) [employer] [employer](F amily Practice Team 2) TELE CONSULT [id number] Overdue DM Labs LUBNA BENSON 06/27 [employer] [employer] (Family Practic e Team 2) [employer] [employer](F amily Practice Team 2) TELE CONSULT [id number] fyi LIBBY FIELD 10/[employer] [employer] (Family Practic e Team 2) [employer] [employer]F amily Practice Team 2) OUTPATIENT [id number] DM f/u ER visit LIBBY FEILD 10/10 Released w/o Limitations [employer] [employer] (Family Practic e Team 2) [employer] [employer](F amily Practice Team 2) TELE CONSULT [id number] Report lab LIBBY FIELD 10/17 [employer] [employer] (Family Practic e Team 2) [employer] [employer](F amily Practice Team 1) TELE CONSULT [id number] LUBNA Fajardo 01/30 [employer] [employer] (Family Practic e Team 1) [employer] [employer](F amily Practice Team 1) TELE CONSULT [id number] Referra LIBBY Caro 11/22 /2010 [employer] [employer] (Family Practic e Team 1) [employer] [employer](F amily Practice Team 2) TELE CONSULT [id number] pt needs new referra l for Endocro nologis t DORI GOLD 04/[employer] [employer] (Family Practic e Team 2) [employer] [employer]F amily Practice Team 2) OUTPATIENT [id number] Cough and Congest ion BENSON, LUBNA K 05/20 Released w/o Limitations [employer] [employer] (Family Practic e Team 2) [employer] [employer](F amily Practice Team 1) TELE CONSULT [id number] Network results - Endocri nology - 0411 DORI GOLD 08/[employer] [employer] (Family Practic e Team 1) [employer] [employer](F amily Practice Team 2) OUTPATIENT [id number] referra l for endocro nolgist LIBBY FIELD 11/27 Released w/o Limitations [employer] [employer] (Family Practic e Team 2) [employer] [employer](Sergei Barber Ped Team A) OUTPATIENT [id number] neck pain SORAYA LOW 02/20 Released w/o Limitations [employer] [employer] (Jan bills Ped Team A) [employer] [employer](Jodie ietician (In-House )) OUTPATIENT [id number] Diabete s Class JACKIE MCLAUGHLIN 05/13 Released w/o Limitations [employer] [employer] (Danisha manzano (In-Rohith)) [employer] [employer](M [facility] Team Z) OUTPATIENT [id number] DM Group class TANIKA EVERETT RN 05/13 Released w/o Limitations [employer] [employer] ([facility] Team Z) [employer] [employer]([facility] Team Z) TELE CONSULT [id number] DM b-day labs TANIKA EVERETT RN 06/13 [employer] [employer] ([facility] Team Z) [employer] [employer](M [facility] Ped Team A) OUTPATIENT [id number] cough and vomitin g SORAYA LOW 08/03 Released w/o Limitations [employer] [employer] ([facility] Ped Team A) [employer] [employer]([facility] Ped Team A) OUTPATIENT [id number] stomach pains SORAYA LOW 10/12 Released w/o Limitations [employer] [employer] ([facility] Ped Team A) [employer] [employer]([facility] Ped Team A) OUTPATIENT [id number] cough SORAYA LOW 12/25 Released w/o Limitations [employer] [employer] ([facility] Ped Team A) [employer] [employer]([facility] Ped Team A) TELE CONSULT [id number] Notes Entered by: LAUREL ESTRADA 19 May 2012 1450 ------- ------- ------- ------- -- Network Results - Endo. - 04/2012 SORAYA LOW 05/19 [employer] [employer] ([facility] Ped Team A) [employer] [employer]([facility] Ped Team A) TELE CONSULT [id number] Notes Entered by: LAUREL ESTRADA 24 Jun 2012 1331 ------- ------- ------- ------- -- Network Results - Endo. - 06/2012 SORAYA LOW 06/24 [employer] [employer] ([facility] Ped Team A) [employer] Jahair[place] [facility] [employer]([facility] Team A) TELE CONSULT [id number] Notes Entered by: LAUREL ESTRADA 24 Jun 2012 1332 ------- ------- ------- ------- -- Network Results - Endo. - 06/2012 SORAYA LOW 06/24 [employer] [employer] ([facility] Team A) [employer] [place] [facility] [place] [employer]([facility] Team A) TELE CONSULT [id number] Notes Entered by: LAUREL ESTRADA 09 Jul 2012 1506 ------- ------- ------- ------- -- Network Results - Endo. - 06/2012 SORAYA LOW 07/09 [employer] [place] [employer] ([facility] Team A) [employer] [place] [facility] [employer]([facility] Team A) TELE CONSULT [id number] Notes Entered by: LAUREL ESTRADA 14 Jul 2012 1545 ------- ------- ------- ------- -- Network Results - Endo. - 06/2012 SORAYA LOW 07/14 [employer] [place] [employer] ([facility] Team A) [employer] [place]air[place] [facility] [employer]([facility] Team Z) TELE CONSULT [id number] Notes Entered by: TANIKA EVERETT RN 16 Jul 2012 1021 ------- ------- ------- ------- -- Lab from off base TANIKA Mendez RN 07/16 [employer] [employer] ([facility] Team Z) [employer] [place] [employer]([facility] Team A) TELE CONSULT [id number] Notes Entered by: LAUREL ESTRADA 06 Aug 2012 0739 ------- ------- ------- ------- -- Network Results - Endo. - 07/2012 SORAYA LOW 08/06[employer] [employer] ([facility] Team A) [employer] [place] [employer]([facility] Ped Team A) TELE CONSULT [id number] Notes Entered by: LAUREL ESTRADA 06 Aug 2012 0740 ------- ------- ------- ------- -- Network Results - Endo - 07/2012 SORAYA LOW 08/06 [employer] [employer] ([facility] Team A) [employer] [place] [employer]([facility] Team Z) TELE CONSULT [id number] Notes Entered by: TANIKA EVERETT RN 06 Aug 2012 1138 ------- ------- ------- ------- -- Labs [place] TANIKA Mendez RN 08/06[employer] [place], [place] [employer] ([facility] Team Z) [employer] [employer]([facility] Team A) TELE CONSULT [id number] Notes Entered by: ANNA LINDSEY RN 08 Sep 2012 1020 ------- ------- ------- ------- -- Immuniz ation JENN Anaya RN 09/08[employer] [employer] ([facility] Ped Team A) [employer] [employer](M [facility] Ped Team A) OUTPATIENT [id number] well check SORAYA LOW 09/27 Released w/o Limitations [employer] [employer] ([facility] Ped Team A) [employer] [employer](M [facility] Ped Team A) OUTPATIENT [id number] cough SORAYA LOW 10/07 Released w/o Limitations [employer] [employer] ([facility] Ped Team A) [employer] [employer]([facility] Ped Team A) TELE CONSULT [id number] Notes Entered by: LAUREL ESTRADA 30 Dec 2012 1335 ------- ------- ------- ------- -- Network Results - Endocri nology - 12/2012 SORAYA LOW 12/30 [employer] [employer] ([facility] Ped Team A) [employer] [place] [employer]([facility] Ped Team A) OUTPATIENT [id number] diabeti c, toenail turning yellow and peeling SORAYA LOW 02/21 Released w/o Limitations [employer] [employer] ([facility] Ped Team A) [employer] [place] [employer]([facility] Ped Team A) TELE CONSULT [id number] Notes Entered by: LAUREL ESTRADA 15 Mar 2013 1323 ------- ------- ------- ------- -- Network Results - Podiatr y - 02/2013 SORAYA LOW 03/15[employer] [employer] ([facility] Team A) [employer] [employer]([facility] Team Z) TELE CONSULT [id number] Notes Entered by: TANIKA EVERETT RN 16 Mar 2013 1217 ------- ------- ------- ------- -- Endo lab results SORAYA LOW 03/16 [employer] [employer] ([facility] Team Z) [employer] [employer]([facility] Team Z) TELE CONSULT [id number] Notes Entered by: DANE DOUGLAS 31 Mar 2013 0953 ------- ------- ------- ------- -- Network results - Endocri nology - 3 SORAYA LOW 03/31 [employer] [employer] ([facility] Team Z) [employer] [place] [employer]([facility] Team A) TELE CONSULT [id number] Notes Entered by: LAUREL ESTRADA 12 Apr 2013 1348 ------- ------- ------- ------- -- Network Results - Podiatr y - 03/2013 SORAYA LOW 04/12 [employer] [employer] ([facility] Team A) [employer] [place] [employer]([facility] Team A) OUTPATIENT [id number] headach e, stomach pain, sore throat SORAYA LOW 06/02 Released w/o Limitations [employer] [employer] ([facility] Team A) [employer] [employer]([facility] Team D) TELE CONSULT [id number] Notes Entered by: LAUREL ESTRADA 13 Jun 2013 1029 ------- ------- ------- ------- -- Network Results - Podiatr y - 05/2013 SORAYA LOW 06/13 [employer] [employer] ([facility] Team D) [employer] [place] [employer] [employer]([facility] Team A) TELE CONSULT [id number] Notes Entered by: LAUREL ESTRADA 06 Jul 2013 0746 ------- ------- ------- ------- -- Network Results - Endocri nology - 06/2013 . [facility] SORAYA LOW 07/06 [employer] [employer] ([facility] Team A) [employer] [place] [employer] [employer]([facility] Team A) TELE CONSULT [id number] Notes Entered by: Thelma LOZA 02 Aug 2013 1005 ------- ------- ------- ------- -- Please renew Endo ref to Dr. Mick Maravilla . [facility] [phone]..JENN Funes RN 08/02 [facility] [employer] [employer] ([facility] Team A) [facility] [employer] [place] [employer]([facility] Team A) TELE CONSULT [id number] Notes Entered by: Abhishek SALEH 17 Oct 2013 1112 ------- ------- ------- ------- -- Patient is moving this weekend and she needs insulin pump JENN Galloway RN 10/17[facility] [employer] [facility] [employer] [employer] ([facility] Team A) [facility] [place] [employer]([facility] Team A) TELE CONSULT [id number] Notes Entered by: IVAN DOUGLASARE WALTER 28 Oct 2013 1251 ------- ------- ------- ------- -- Network results - Endocri nology - SORAYA LOW 10/28 [employer] [employer] (Jan Lin Team A) Procedures Combined list of: 1) Procedures from Department of Veterans Affairs facilities going back up to thelast 18 months, not all [place] non-surgical procedures are included; 2) All procedures from the Department of Defense facilities. Procedure Procedure Type Code Date Perfomer Comments [facility] ramu Disease management program, follow-up/barrington e ment 03/16/2013 IVETT EVERETT RN [facility] Toenail Culture Fungi Toenail Culture Fungi [id number] 02/26/2013 SORAYA LOW [facility] Medical Nutrition Therapy Group (2 or More Individuals) Each 30 Minutes Medical Nutrition Therapy Group (2 or More Individuals) Each 30 Minutes [id number] 05/13/2011 JACKIE MCLAUGHLIN [facility] Disease management program, follow-up/barrington e ment 05/13/2011 IVETT EVERETT RN [facility] DISEASE MANAGEMENT PROGRAM, FOLLOW-UP/REASSESSMEN T 03/16/2013 [facility] CULTURE, FUNGI (MOLD OR YEAST) ISOLATION, WITH PRESUMPTIVE IDENTIFICATION OF ISOLATES; SKIN, HAIR, OR NAIL 02/21/2013 [facility] DISEASE MANAGEMENT PROGRAM, FOLLOW-UP/REASSESSMEN T 05/13/2011 [facility] MEDICAL NUTRITION THERAPY; GROUP (2 OR MORE INDIVIDUAL(S)), EACH 30 MINUTES 05/13/2011 [facility] NONINVASIVE EAR OR PULSE OXIMETRY FOR OXYGEN SATURATION; SINGLE DETERMINATION 03/05/2005 [facility] NONINVASIVE EAR OR PULSE OXIMETRY FOR OXYGEN SATURATION; SINGLE DETERMINATION 08/15/2004 [facility] VARICELLA VIRUS VACCINE (SHERRY), LIVE, FOR SUBCUTANEOUS USE 07/25/2004 [facility] REMOVAL IMPACTED CERUMEN REQUIRING INSTRUMENTATION, UNILATERAL 05/02/2004 [facility] HAEMOPHILUS INFLUENZAE TYPE B VACCINE (HIB), PRP-OMP CONJUGATE, 3 DOSE SCHEDULE, FOR INTRAMUSCULAR USE 2003 [facility] Social History Combined list of available smoking, tobacco, and other social history from Department of Defense and Veterans Affairs facilities. Social History Type Response Date Comment [facility] ramu This section is an empty social history section. [facility]
--- OUTSIDE RECORDS SUMMARY | 2024-06-13 21:20 | XMS_ITS | Clinical Summary ---
Demographics Address [address] [place] [address] Home Phone Mobile Phone Email Address Preferred Language Barbadian Marital Status Unknown Caodaism Affiliation Does not wish to l ist Race White Ethnic Group Not or Lati no Author Organization [facility] Address [address] [place] [id number] Care Team Providers Care Business Improvement Manager Name Role Phone Aracelis Saab Primary Care Provider Jo Kearns RN Unavailable [phone] Luis Mendiola DO Unavailable [phone] Alannah Boss Unavailable Allergies Active Allergy Reactions [...] be used to read blood sugars, follow aircraft electrician directions. Change every 10 days 9 Each [...] mellitus at risk of hypoglycemia Inhale 1 Grenola into affected nostril(s) each time if needed for Severe Hypoglycemia. Roll on side and call 911 after administration. 2 Each 03/31/20 24 Active Active Problems Problem Noted Date Diagnosed Date Type 1 diabetes mellitus without complication Resolved Problems Problem Noted Date Diagnosed Date Resolved Date Type 1 diabetes mellitus with hyperglycemia 03/01/2021 08/04/2023 Encounters Date Type Department Care Team Description 04/30/2024 Telephone [facility] [address] [facility] [address] [place] [address] Alannah Boss PA Prior Authorization (Dexcom G7 Sensor for continuous blood glucose monitor (CGM) Approved 04/30/2024 to 04/29/2025) 04/26/2024 Orders Only [facility] [address] [facility] [address] [place] [address] Alannah Boss PA <No scans attached> 03/31/2024 1:00 PM [employer] TEACHER Patient Outreach [facility] [address] [place] [id number] Jo Kearns wire wrapping machine operator (Pre-pump assessment) 03/31/2024 Travel from Last 3 Months Immunizations Name Administration Dates Next Due DTP 11/22/2008, 5,02/07/2004,11/21,2003 DTaP 12/02/2004 [id number] (Pediarix) 02/07/2004,2003,0 2003 DTaP-IPV (Kinrix) 11/22/2008 HIB [...] CDT Respiratory Rate 20 05/20/2017 1:46 PM [employer] TE[employer]ER Oxygen Saturation 97% 01/19/2024 2:44 PM CDT Inhaled Oxygen Concentration - - Weight 48.5 kg (107 lb) 02/01/2024 11:27 AM CDT Height 157 cm (5' 1.81) 12/09/2023 4:13 PM CDT Body Mass Index - - Plan of Treatment Upcoming Encounters Date Type Department Care Team (Late st Contact Info) Description 08/02/2024 9:40 AM CDT Office Visit [facility] [address] [place], [place] [id number] Luis Mendiola, DO [address] [place] [address] Health Maintenance Due Date Last Done Comments [...] CHLAMYDIA PROBE Positive(A) 11/28/19 2:12 PM CDT [facility] N GONORRHOEAE PROBE Negative 11/27/2021 2:12 PM CDT [facility] Other VAGINAL SWAB / Unknown Non-Blood / Unknown 11/26/2021 1:09 PM CDT 11/26/2021 1:43 PM CDT us Aracelis PINEDA MICROBIOLOGY Final R esult [facility] [address] [place] [address], [place] from Last 3 Months or Most Recently Relevant to Health Maintenance Insurance [facility] * Guarantor: Anotni Pacheco Account Type Relation to Patient Date of Phone Billing Address Workers Comp Self 2005 04[address] [place] [address] [facility] NON-XCEL EMP Care Teams Business Improvement Manager Relationship Specialty Start Date End Date Aracelis Saab PA [address] [place] [address] PCP - General Physician Transportation Sales Consultant 07/11/20 Jo Kearns, RN [address] [place] [address] Field Coil Winder 12/16/22 Luis Mendiola DO [address] [place] [address] Endocrinology 05/01/23 Alannah Boss PA [address] [place] [address] Endocrinology Physician Transportation Sales Consultant 11/09/23
--- NOTE | 2024-06-13 22:19 | ED_ITS ---
HPI - General Adult General Date Seen: 06/13/24 Chief complaint: Cough Stated complaint: Head pressure, cough, chest pain Time Seen by Provider: 06/13/24 21:07 Source: patient Mode of arrival: ambulatory Limitations: no limitations History of Present Illness HPI narrative: Patient is a 18-year-old female complaining about eye drainage irritation started on Thursday night. She has also been having a cough runny nose head pressure and intermittent fevers. She states overall she feels sick and fatigued. Does states she has occasional midsternal chest pain but currently is not having any pain. Is not aware of any sick contacts. Denies shortness of breath, worsening pain with deep breathing, leg swelling. No history of blood clots. States the headache feels like a dull ache it has been pretty consistent. States has been gradually getting worse. Related Data Home Medications ?Medication ?Instructions ?Recorded ?Confirmed insulin aspart U-100 100 unit/mL 1 sliding scale dose subcut 11/05/21 06/13/24 (3 mL) subcutaneous pen (Novolog DIRECTED FlexPen U-100 Insulin aspart) insulin glargine 100 unit/mL (3 1 unit subcut DIRECTED 11/05/21 06/13/24 mL) subcutaneous pen (Lantus Solostar U-100 Insulin) methylphenidate HCl 54 mg 54 mg PO DAILY 06/13/24 06/13/24 tablet,extended release 24 hr Allergies Allergy/AdvReac Type Severity Reaction Status Date / Time cinnamon Allergy Severe Anaphylaxis Verified 06/13/24 21:24 cephalexin (From Keflex) Allergy Unknown Verified 06/13/24 21:24 Review of Systems Status of ROS: Reports: 10 or more systems reviewed and unremarkable except as noted in History and below [facility] Medical History No significant past medical history Surgical History History of wisdom tooth extraction ?K08.409 - Partial loss of teeth, unspecified cause, unspecified class (ICD- 10) Social History Smoking Status: Never smoker Do you use any of these nicotine containing products: None Second hand tobacco smoke exposure: No How often do you have a drink containing alcohol: 2-4 times a month How many standard drinks containing alcohol do you have on a typical day: 3 or 4 How often do you have six or more drinks on one occasion: Less than monthly AUDIT-C Alcohol total score: 4 Non-prescribed substance use: denies use service: No Exam Narrative: Exam Narrative: Const: Well-nourished, Well-developed, in mild distress Eyes: PERRL, mild conjunctival injection, and symmetrical lids HENT: Atraumatic external nose and ears. Moist mucous membranes. Neck: Symmetric, trachea midline, No thyromegaly. CVS: RRR, No murmurs or gallops. Peripheral pulses 2+ and equal in all extremities RESP: Unlabored respiratory effort. Clear to auscultation bilaterally. GI: Nontender/Nondistended, No rebound or guarding. MSK:Extremities w/o deformity, Normal Active ROM Skin: Warm, Dry. No rashes or lesions. Neuro: Normal Muscle tone, No focal neurological deficits. Psych: Awake, Alert, & Oriented x3. Appropriate mood and affect. Const: Vital Signs, click to edit/add: Vital Signs - 24 hr 06/13/24 19:32 06/13/24 21:06 Temperature 100.0 F H 99.8 F H Pulse Rate [Pulse Oximeter] 106 H 109 H Respiratory Rate 20 16 Blood Pressure [Ri ght Upper Arm] 131/92 H 124/84 Pulse Oximetry 96 95 Oxygen Delivery Me thod Room Air Room Air Course Vital Signs Vital signs: Initial Vital Signs Temperature 100.0 F H 06/13/24 19:32 Temperature Source Temporal Artery Scan 06/13/24 19:32 Pulse Rate 106 H 06/13/24 19:32 Respiratory Rate 20 06/13/24 19:32 Blood Pressure 131/92 H 06/13/24 19:32 Blood Pressure Mean 105 06/13/24 19:32 Pulse Oximetry 96 06/13/24 19:32 Oxygen Delivery Method Room Air 06/13/24 19:32 Vital Signs Temperature 100.0 F H 06/13/24 19:32 Pulse Rate 106 H 06/13/24 19:32 Respiratory Rate 20 06/13/24 19:32 Blood Pressure 131/92 H 06/13/24 19:32 Pulse Oximetry 96 06/13/24 19:32 Oxygen Delivery Method Room Air 06/13/24 19:32 Temperature 99.8 F H 06/13/24 21:06 Pulse Rate 109 H 06/13/24 21:06 Respiratory Rate 16 06/13/24 21:06 Blood Pressure 124/84 06/13/24 21:06 Pulse Oximetry 95 06/13/24 21:06 Oxygen Delivery Method Room Air 06/13/24 21:06 Medical Decision Making MDM Narrative Medical decision making narrative: Patient is a 18-year-old female presenting for other viral symptoms. I pretty low concern for PE at this time. She is RSV positive on the viral swabs. She does states she has intermittent chest pain but is currently pain-free overall looks well in the concern for ACS or myocarditis is very low at this time. We are symptoms currently being caused by her RSV. Her headache symptoms do not sound consistent with a subarachnoid hemorrhage. At this time I will discharge her. She is agreeable to this plan. Lab Data Labs: Lab Results 06/13/24 Range/Units 19:35 SARS-CoV-2 (PCR) Negative SARS-CoV-2 (Negative) Influenza Type A (PCR) Negative PCR FLU A (Negative) Influenza Type B (PCR) Negative PCR FLU B (Negative) RSV (PCR) POSITIVE PCR RSV A (Negative) Discharge Plan Discharge Clinical Impression: Respiratory syncytial virus (RSV) Qualifiers: RSV infection type: unspecified Qualified Code(s): B33.8 - Other specified viral diseases Patient Disposition: Home, Self-Care Condition: Stable Instructions: RSV (Respiratory Syncytial Virus) Infection (ED) Additional Instructions: RSV positive. tylenol, ibuprofen for symptom management. follow up with primary care as needed. Prescriptions: No Action insulin aspart U-100 [Novolog FlexPen U-100 Insulin] 100 unit/mL (3 mL) insulin pen 1 sliding scale dose SUBCUT DIRECTED Patient Comments: 1400 today insulin glargine [Lantus Solostar U-100 Insulin] 100 unit/mL (3 mL) insulin pen 1 unit SUBCUT DIRECTED Rx Instructions: as directed methylphenidate HCl 54 mg tablet extended release 24hr 54 mg PO DAILY Follow Up/Referrals: Aracelis Saab PA-C [Primary Care Provider] - Stand Alone [facility] Info Instructions
== END 2024-06-13 21:31 | disposition home or self-care (01) ==
PROVIDERS: Emergency Provider Student in an Organized Health Care Education/Training Program; PCP Physician Assistant Medical
DX: J06.9 Acute upper respiratory infection, unspecified (principal); B97.4 Respiratory syncytial virus as the cause of diseases classified elsewhere
CPT/HCPCS: 87631; 99282; 99283

== ENCOUNTER 2025-02-13 12:13 | Emergency (ER) | payer OTHER, SELFPAY ==
--- OUTSIDE RECORDS SUMMARY | 2025-02-13 12:15 | XMS_ITS | Clinical Summary ---
Author Organization [facility] Address [address] [place] [id number] Care Team Providers Care Microsoft Dynamics Consultant Name Role Phone Aracelis Saab Primary Care Provider Jo Kearns RN Unavailable Luis Mendiola DO Unavailable [phone] Alannah Boss Unavailable Allergies Active Allergy Reactions Criticality Noted Date Comments Cinnamon Oil Rash Medium 12/28/2013 Cefadroxil Nausea Only,Stomach Upset 01/21/2021 Medications Blood-Glucose Meter (Contour Next Meter)Indications :Type 1 diabetes mellitus without complication (HC) Test 4 times per day. 11/09/19 24 Active pen needle (Cynthia Pen Needle) 32 gauge x 5/32 (disposable insulin pen needle)Indication s:Type 1 diabetes mellitus without complication (HC) Inject subcutaneous 5 times daily. To use with insulin up to 5 times daily 150 Each 3 12/15/19 24 Active glucagon (Baqsimi) 3 mg/actuation nasal sprayIndications: patient with diabetes mellitus at risk of hypoglycemia Inhale 1 Achille into affected nostril(s) each time if needed for Severe Hypoglycemia. Roll on side and call 911 after administration. 2 Each 03/31/20 24 Active Lantus Solostar U-100 Insulin 100 unit/mL (3 mL) penIndications:Ty pe 1 diabetes mellitus without complication (HC) Inject 27 units subcutaneous before bedtime. Product desired: LANTUS SOLOSTAR 30 mL 3 12/30/19 25 Active methylphenidate ER (Concerta) 54 mg extended release tabletIndications :Type 1 diabetes mellitus without complication (HC) Take 1 Tablet (54 mg) by mouth once daily. 30 Tablet 01/10/20 25 Active Dexcom G7 Sensor for continuous blood glucose monitor (CGM)Indications: Type 1 diabetes mellitus without complications (HC) To be used to read blood sugars, follow business applications manager directions. Change every 10 days 9 Each 3 01/19/20 25 Active insulin lispro-aabc (U-100) (Lyumjev KwikPen U-100 Insulin) 100 unit/mL penIndications:Ty pe 1 diabetes mellitus with hyperglycemia (HC) Inject 1 unit per 10-12 grams of carbohydrate plus correction scale of 1:50 over 150. Up to 50 units daily. 45 mL 3 01/24/20 25 Active insulin aspart, U-100, (NOVOLOG FLEXPEN) 100 unit/mL (3 mL) penIndications:Ty pe 1 diabetes mellitus without complication (HC) 1 unit per 15 grams of carbohydrate plus correction scale of 1:50 over 150. Up to 30 units daily 30 mL 3 12/15/19 24 025 Discontin ued(Reord er (E-cancel not sent)) Dexcom G7 Sensor for continuous blood glucose monitor (CGM)Indications: Type 1 diabetes mellitus without complication (HC) To be used to read blood sugars, follow business applications manager directions. Change every 10 days 9 Each 3 10/18/19 25 025 Discontin ued(Reord er (E-cancel not sent)) insulin aspart (U-100) (NOVOLOG FLEXPEN) 100 unit/mL (3 mL) penIndications:Ty pe 1 diabetes mellitus without complications (HC) 1 unit per 10-12 grams of carbohydrate plus correction scale of 1:50 over 150. Up to 30 units daily. 30 mL 3 01/19/20 25 025 Discontin ued(*Avai lability/ Formulary change/Co st of medicatio n) Active Problems Problem Noted Date Diagnosed Date Type 1 diabetes mellitus without complication Overview (01/27/2025): Diagnosis Code replaced due to regulatory update Resolved Problems Problem Noted Date Diagnosed Date Resolved Date Type 1 diabetes mellitus with hyperglycemia 03/01/2021 08/04/2023 Encounters Date Type Department Care Team Description 02/11/2025 Travel 01/31/2025 2:45 PM CDT Ancillary Procedure [facility] [address] [place] [address] 01/31/2025 1:45 PM CDT Office Visit [facility] [address] [place] [address] Sumi Mckeon PA Gi Problem (vomiting yesterday after going out to eat, noticed blood in vomit. ) 01/31/2025 Travel 01/18/2025 11:00 AM CDT Office Visit [facility] [address] [facility] [address] [facility] [address] [place] [address] Alannah Boss PA Diabetes 01/18/2025 Travel from Last 3 Months Immunizations Immunization Administration Dates Next Due DTP 11/22/2008, 5,02/07/2004,11/21,2003 DTaP 12/02/2004 [id number] (Pediarix) 02/07/2004,2003,0 2003 DTaP-IPV (Kinrix) 11/22/2008 HIB [...] on file Sexual Orientation Not on file Travel History Travel Start Travel End [place] 02/03/2025 02/10/2025 Obstetrics History Last Filed Vital Signs Vital Sign Reading Time Taken Comments Blood Pressure 111/75 01/31/2025 1:47 PM CDT Pulse 89 01/31/2025 1:47 PM CDT Temperature 36.7 C (98.1 F) 02/10/2023 3:03 PM CDT Respiratory Rate 16 10/17/2024 9:52 AM CDT Oxygen Saturation 98% 01/31/2025 1:47 PM CDT Inhaled Oxygen Concentration - - Weight 49.4 kg (109 lb) 01/31/2025 1:47 PM CDT Height 157 cm (5' 1.81) 12/09/2023 4:13 PM CDT Body Mass Index - - Plan of Treatment Upcoming Encounters Date Type Department Care Team (Late st Contact Info) Description 02/13/2025 1:50 PM CDT Office Visit [facility] [address] [place] [address] [place] [address] [place] [address] 02/14/2025 2:00 PM CDT Patient Outreach [facility] [address] [place] [address] Jo Kearns, RN [address] [place] [id number] 04/25/2025 11:45 AM MATTRESS FINISHER Office Visit [facility] [address] [place] [address] Luis Mendiola DO [address] [place] [address] 07/26/2025 10:30 AM CDT Office Visit [facility] [address] [place], [place] [id number] Alannah Boss PA [address] [place] [address] Health Maintenance Due Date Last Done Comments Pneumococcal series for age 6-49 (2 of 2 - PCV) 09/27/2013 09/27/2012, 12/02/2004, 02/07/2004, Additional history exists HPV series for age 9-45 (3 - 2-dose series) 06/17/2016 02/04/2016, 12/17/2015 HIV for age 15-65 07/18/2018 Depression screening for age 12+ 05/15/2021 05/15/2020, 04/06/2019, 05/29/2017, Additional history exists Hepatitis C screening for ag e 18-79 07/18/2021 Chlamydia for age 16-24 11/26/2022 11/26/2021 Pap test for age 21-65 07/18/2024 BMI (ht and wt on same day) for age 18+ 12/08/2024 12/09/2023, 11/09/2023, 12/27/2021, Additional history exists Influenza Vaccine (#1) 2024 , 01/25/2019, 02/04/2016, Additional history exists Tetanus booster 12/16/2025 12/17/2015 RSV vaccine for adults or (1 - 1-dose 75+ series) 07/18/2078 Hepatitis B series for 19+ Completed 02/06, 2003, 2003, Additional history exists Meningococcal series for age 11-21 Completed 2020, 12/17/2015 Procedures Procedure Name Priority Date/Time Associated Diagnosis Comments NV READING EKG - NO CHARGE, COMP ONLY Routine 02/02/2025 8:54 AM CDT Chest pain on exertion DURAN (dyspnea on exertion) Type 1 diabetes mellitus without complication (HC) EKG 12 LEAD Routine 02/02/2025 8:54 AM CDT Chest pain on exertion DURAN (dyspnea on exertion) Type 1 diabetes mellitus without complication (HC) XR CHEST 2 VIEWS PA AND LATERAL GIANLUCA 01/31/2025 3:01 PM CDT Chest pain on exertion DURAN (dyspnea on exertion) Type 1 diabetes mellitus without complication (HC) CBC WITH AUTO DIFFERENTIAL Routine 01/31/2025 2:39 PM CDT Hematemesis with nausea Type 1 diabetes mellitus without complication (HC) D-DIMER,QUANTITATIVE Routine 01/31/2025 2:39 PM CDT Chest pain on exertion DURAN (dyspnea on exertion) TSH WITH REFLEX Routine 01/31/2025 2:39 PM CDT Hematemesis with nausea Type 1 diabetes mellitus without complication (HC) COMP METABOLIC PANEL Routine 01/31/2025 2:39 PM CDT Hematemesis with nausea Type 1 diabetes mellitus without complication (HC) CBC WITH AUTO DIFFERENTIAL Routine 01/31/2025 2:39 PM CDT Hematemesis with nausea Type 1 diabetes mellitus without complication (HC) HEMOGLOBIN A1C Routine 01/18/2025 11:38 AM CDT Type 1 diabetes mellitus without complications (HC) GC CHLAMYDIA TRACH PROBE Routine 11/26/2021 1:09 PM CDT Screen for STD (sexually transmitted disease) Vaginal discharge from Last 3 Months or Most Recently Relevant to Health Maintenance Results * EKG 12 LEAD (02/02/2025 8:54 AM CDT) us Sumi Mckeon PA EKG ORD Final Result * NV READING EKG - NO CHARGE, COMP ONLY (02/02/2025 8:54 AM CDT) us Sumi PINEDA PB - PROVIDER READINGS Final Result * XR CHEST 2 VIEWS PA AND LATERAL (01/31/2025 3:01 PM CDT) Anatomical Region Laterality Modality CHEST, THORAX, Lung, HEART Compu michelle Radiography 01/31/2025 4:38 PM CDT Impressions 01/31/2025 4:38 PM CDT Negative chest. No finding to explain chest pain or dyspnea. Dictated by Harshil Mixon MD @ 01/31/2025 4:38:12 PM (Electronically Signed) Narrative 01/31/2025 4:38 PM CDT For Patients: As a result of the Cures Act, medical imaging exams and procedure reports are released immediately into your electronic medical record. You may view this report before your referring provider. If you have questions, please contact your health care provider. INDICATION: Chest pain on exertion. Dyspnea on exertion. TECHNIQUE: Chest 2 views. COMPARISON: April 08, 2018. FINDINGS: Cardiovascular and mediastinum: Heart size is normal. Unremarkable mediastinum. Lungs and pleural spaces: Lungs are clear. No sign of infiltrate or mass. No sign of pleural effusion. No pneumothorax. Bones and soft tissues: No significant findings. Procedure Note Harshil Mixon MD - 01/31/2025 For Patients: As a result of the Cures Act, medical imagingexams and procedure reports are released immediately into your electronicmedical record. You may view this report before your referring provider.If you have questions, please contact your health care provider. INDICATION: Chest pain on exertion. Dyspnea on exertion. TECHNIQUE: Chest 2 views. COMPARISON: April 08, 2018. FINDINGS: Cardiovascular and mediastinum: Heart size is normal. Unremarkablemediastinum. Lungs and pleural spaces: Lungs are clear. No sign of infiltrate ormass. No sign of pleural effusion. No pneumothorax. Bones and soft tissues: No significant findings. IMPRESSION: Negative chest. No finding to explain chest pain or dyspnea. Dictated by Harshil Mixon MD @ 01/31/2025 4:38:12 PM (Electronically Signed) Sumi PINEDA GENERAL IMAGING Final Result * (ABNORMAL) CBC WITH AUTO DIFFERENTIAL (01/31/2025 2:39 PM CDT) WHITE BLOOD CELL COUNT 11.3(H) 3.8 - 10.8 Thousand/ uL 02/01/2025 5:31 AM CDT [facility] RED BLOOD CELL COUNT 4.48 3.80 - 5.10 Million/u L 02/01/2025 5:31 AM CDT [facility] HEMOGLOBIN 14.3 11.7 - 15.5 g/dL 02/01/2025 5:31 AM CDT [facility] HEMATOCRIT 43.2 35.0 - 45.0 % 02/01/2025 5:31 AM CDT [facility] MCV 96.4 80.0 - 100.0 fL 02/01/2025 5:31 AM CDT [facility] MCH 31.9 27.0 - 33.0 pg 02/01/2025 5:31 AM CDT [facility] MCHC 33.1 32.0 - 36.0 g/dL 02/01/2025 5:31 AM CDT [facility] Comment: For adults, a slight decrease in the calculated MCHC value (in the range of 30 to 32 g/dL) is most likely not clinically significant; however, it should be interpreted with caution in correlation with other red cell parameters and the patient's clinical condition. RDW 11.7 11.0 - 15.0 % 02/01/2025 5:31 AM CDT [facility] PLATELET COUNT 468(H) 140 - 400 Thousand/ uL 02/01/2025 5:31 AM CDT [facility] MPV 10.5 7.5 - 12.5 fL 02/01/2025 5:31 AM CDT [facility] NEUTROPHILS 67.9 % 02/01/2025 5:31 AM CDT [facility] LYMPHOCYTES 22.9 % 02/01/2025 5:31 AM CDT [facility] MONOCYTES 6.3 % 02/01/2025 5:31 AM CDT [facility] EOSINOPHILS 1.9 % 02/01/2025 5:31 AM CDT [facility] BASOPHILS 1.0 % 02/01/2025 5:31 AM CDT [facility] ABSOLUTE NEUTROPHILS 7673 1500 - 7800 cells/uL 02/01/2025 5:31 AM CDT [facility] ABSOLUTE LYMPHOCYTES 2588 850 - 3900 cells/uL 02/01/2025 5:31 AM CDT [facility] ABSOLUTE MONOCYTES 712 200 - 950 cells/uL 02/01/2025 5:31 AM CDT [facility] ABSOLUTE EOSINOPHILS 215 15 - 500 cells/uL 02/01/2025 5:31 AM CDT [facility] ABSOLUTE BASOPHILS 113 0 - 200 cells/uL 02/01/2025 5:31 AM CDT [facility] Blood BLOOD SPECIMEN / Unknown [facility] / Unknown 01/31/2025 2:39 PM CDT 01/31/2025 2:39 PM CDT Sumi PINEDA HEMATOLOGY Final Result Performing Organization Address [facility]/ZIP Co de Phone Number [facility] [address] [address], [place] [phone] * TSH WITH REFLEX (01/31/2025 2:39 PM CDT) Pathologist [facility] TSH W/REFLEX TO FT4 1.16 mIU/L 02/01/2025 5:31 AM CDT [facility] Comment: Reference Range > or = 20 Years 0.40-4.50 Ranges First trimester 0.26-2.66 Second trimester 0.55-2.73 Third trimester 0.43-2.91 Blood BLOOD SPECIMEN / Unknown [facility] / Unknown 01/31/2025 2:39 PM CDT 01/31/2025 2:39 PM CDT Sumi PINEDA CHEMISTRY Final Result Performing Organization Address City/[facility]/ZIP Co de Phone Number [facility] [address] [address], [place] [phone] * D-DIMER,QUANTITATIVE (01/31/2025 2:39 PM CDT) Pathologist [facility] D-DIMER, QUANTITATIVE 0.28 <0.50 mcg/mL FEU 02/01/2025 10:23 AM CDT [facility] Comment: Elevated D-dimer levels are associated with DIC, malignancies, inflammation, sepsis, surgery, trauma, and . A D-dimer result less than 0.5 mcg/mL FEU, in conjunction with a non-high clinical pre-test probability assessment model, excludes deep vein thrombosis and pulmonary embolism. However, since D-dimer values increase with age, the [employer] [employer] recommends an age-adjusted cut-off value in patients older than 50. The calculation for an age adjusted cut-off value is age (years) x 0.01 mcg/mL FEU. For example, the cut-off for a 70-year-old patient would be 68 x 0.01 mcg/mL FEU. For additional information, please refer to [email or web address]/[email or web address] (This link is being provided for informational/educational purposes only.) Blood BLOOD SPECIMEN / Unknown [facility] / Unknown 01/31/2025 2:39 PM CDT 01/31/2025 2:39 PM CDT Sumi PINEDA HEMATOLOGY Final Result [facility] [address] [address], * (ABNORMAL) COMP METABOLIC PANEL (01/31/2025 2:39 PM CDT) SODIUM 135 135 - 146 mmol/L 02/01/2025 5:31 AM CDT [facility] POTASSIUM 4.2 3.5 - 5.3 mmol/L 02/01/2025 5:31 AM CDT [facility] CHLORIDE 100 98 - 110 mmol/L 02/01/2025 5:31 AM CDT [facility] CARBON DIOXIDE 26 20 - 32 mmol/L 02/01/2025 5:31 AM CDT [facility] GLUCOSE 482(H) 65 - 99 mg/dL 02/01/2025 5:31 AM CDT [facility] Comment: Verified by repeat analysis. Fasting reference interval For someone without known diabetes, a glucose value >125 mg/dL indicates that they may have diabetes and this should be confirmed with a follow-up test. CALCIUM 9.2 8.6 - 10.2 mg/dL 02/01/2025 5:31 AM CDT [facility] CREATININE 0.60 0.50 - 0.96 mg/dL 02/01/2025 5:31 AM CDT [facility] BUN/CREATININE RATIO SEE NOTE: 6 - 22 (calc) 02/01/2025 5:31 AM CDT [facility] Comment: Not Reported: BUN and Creatinine are within reference range. EGFR 131 > OR = 60 mL/min/1. 73m2 02/01/2025 5:31 AM CDT [facility] ALBUMIN 4.2 3.6 - 5.1 g/dL 02/01/2025 5:31 AM CDT [facility] PROTEIN, TOTAL 7.0 6.1 - 8.1 g/dL 02/01/2025 5:31 AM CDT [facility] BILIRUBIN, TOTAL 0.5 0.2 - 1.2 mg/dL 02/01/2025 5:31 AM CDT [facility] ALKALINE PHOSPHATASE 102 31 - 125 U/L 02/01/2025 5:31 AM CDT [facility] ALT 16 6 - 29 U/L 02/01/2025 5:31 AM CDT [facility] AST 10 10 - 30 U/L 02/01/2025 5:31 AM CDT [facility] UREA NITROGEN (BUN) 14 7 - 25 mg/dL 02/01/2025 5:31 AM CDT [facility] GLOBULIN 2.8 1.9 - 3.7 g/dL (calc) 02/01/2025 5:31 AM CDT [facility] ALBUMIN/GLOBULI N RATIO 1.5 1.0 - 2.5 (calc) 02/01/2025 5:31 AM CDT [facility] Blood BLOOD SPECIMEN / Unknown [facility] / Unknown 01/31/2025 2:39 PM CDT 01/31/2025 2:39 PM CDT Sumi PINEDA CHEMISTRY Final Result [facility] [address] [place] [address], * (ABNORMAL) HEMOGLOBIN A1C (01/18/2025 11:38 AM CDT) HEMOGLOBIN A1C 12.8(H) <5.7 % 01/19/2025 4:17 AM CDT [facility] Comment: For someone without known diabetes, a hemoglobin A1c value of 6.5% or greater indicates that they may have diabetes and this should be confirmed with a follow-up test. For someone with known diabetes, a value <7% indicates that their diabetes is well controlled and a value greater than or equal to 7% indicates suboptimal control. A1c targets should be individualized based on duration of diabetes, age, comorbid conditions, and other considerations. Currently, no consensus exists regarding use of hemoglobin A1c for diagnosis of diabetes for children. Blood BLOOD SPECIMEN / Unknown [facility] / Unknown 01/18/2025 11:38 AM CDT 01/18/2025 11:39 AM CDT Narrative [facility] - 01/19/2025 4:17 AM CDT FASTING:NO FASTING: NO Alannah PINEDA CHEMISTRY Final Result [facility] [address] [address], * (ABNORMAL) GC CHLAMYDIA TRACH PROBE (11/26/2021 1:09 PM CDT) Pathologist [facility] CHLAMYDIA PROBE Positive(A) 11/28/19 2:12 PM CDT [facility] N GONORRHOEAE PROBE Negative 11/27/2021 2:12 PM CDT [facility] [employer] LABORATORY-CE NTRAL LABORATORY Other VAGINAL SWAB / Unknown Non-Blood / Unknown 11/26/2021 1:09 PM CDT 11/26/2021 1:43 PM CDT Aracelis PINEDA MICROBIOLOGY Final R esult [facility] [employer] LABORATORY-CENTRAL LABORATORY [address] [place] [address], [place] from Last 3 Months or Most Recently Relevant to Health Maintenance Insurance [facility]CEL EMP Care Teams Microsoft Dynamics Consultant Relationship Specialty Start Date End Date Aracelis Sa[place] [address] PCP - General Physician Production Statistical Clerk 07/11/20 Jo Kearns, RN [address] [facility] [address] [place] [address] Bingo Worker 12/16/22 Luis Mendiola DO [address] [facility] [address] [place] [address] Endocrinology 05/01/23 Alannah Boss PA [address] [facility] [address] [place] [address] Endocrinology Physician Production Statistical Clerk 11/09/23
== END 2025-02-13 13:13 | disposition left against medical advice (07) ==
PROVIDERS: PCP Physician Assistant Medical
DX: Z53.21 Procedure and treatment not carried out due to patient leaving prior to being seen by health care provider (principal)

== ENCOUNTER 2025-02-13 14:48 | Outpatient (CLI) | payer OTHER, SELFPAY | END 2025-02-13 14:49 | disposition home or self-care (01) | LOC: NFLDUCREF 14:48 | PROVIDERS: PCP Physician Assistant Medical | DX: N39.0 Urinary tract infection, site not specified (principal) | CPT/HCPCS: 87086 ==